=== PATIENT | female | born 1990 | race Hispanic/Latino ===

== ENCOUNTER 2017-11-01 03:26 | Inpatient (IN) | payer MEDICAID, OTHER, SELFPAY ==
[2017-11-01 04:05] VITALS: BMI 31.0
[2017-11-01] MEDS ORDERED: Butorphanol Tartrate 1 MG/ML VIAL SLOW IVP PRN (05:13)
[2017-11-01] MEDS ORDERED: Ondansetron HCl/PF 4 MG/2 ML Vial IVP PRN ×5 (05:13→19:43)
[2017-11-01] MEDS ORDERED: Acetaminophen 500 MG TAB PO PRN (05:13)
[2017-11-01] MEDS ORDERED: Promethazine HCl 25 MG/ML VIAL IM PRN ×3 (05:13→18:31)
[2017-11-01] MEDS ORDERED: NS w/ Oxytocin 10 units 500 ML IV SCH (05:15)
[2017-11-01] MEDS ORDERED: Ibuprofen 800 MG TAB PO PRN (05:15)
[2017-11-01] MEDS ORDERED: Lidocaine 1% (PF) 30 ML VIAL SC PRN (05:15)
[2017-11-01] MEDS ORDERED: NS / Oxytocin 40 units/1000ml 1,000 ML IV SCH ×2 (05:15→19:45)
[2017-11-01] MEDS: Lactated Ringer's 1,000 ML IV SCH ×5 (05:17→23:22)
[2017-11-01 05:41] LABS: Hemoglobin 14.7 g/dL (12.0-16.0); Mean Corpuscular HGB CONC 34.8 g/dL (32.0-36.0); Mean Corpuscular Volume 91.9 fL (78.0-98.0); Mean Platelet Volume 6.6 fL (7.4-10.4); Platelet Count 171 thou/uL (130-400); RBC Distribution Width 12.2 % (11.5-14.5); Red Blood Cell (RBC) Count 4.61 mill/uL (4.20-5.40); White Blood Cell (WBC) Count 8.7 thou/uL (4.8-10.8)
[2017-11-01] MEDS: NS w/ Oxytocin 10 units 500 ML IV SCH (05:50)
[2017-11-01 06:14] LABS: Syphilis Antibody Nonreactive (Nonreactive); Syphilis Antibody Index 0.04 S/CO (<1.00 Non-Reactive)
[2017-11-01 06:15] LABS: HBSAg Index 0.22 S/CO (0-0.99); Hep B Surf Ag Non-Reactive S/CO (NonReactive)
[2017-11-01] MEDS ORDERED: Lactated Ringer's 500 ML IV PRN (07:52)
[2017-11-01] MEDS ORDERED: Naloxone HCl 0.4 mg/ml Vial IVP PRN ×4 (07:52→18:31)
[2017-11-01] MEDS: Bupivacaine 0.5% 20 ML, fentaNYL Citrate/PF 400 MCG in Sodium Chloride 0.9% 72 ML EPIDURAL SCH ×2 (07:52→15:14)
[2017-11-01] MEDS ORDERED: Eucerin (Mineral Oil/Petrolatum,White) 30 gm Jar TOP PRN ×2 (07:52→18:31)
[2017-11-01] MEDS ORDERED: diphenhydrAMINE 50 MG/ML VIAL IVP PRN ×2 (07:52→18:31)
[2017-11-01] MEDS ORDERED: ePHEDrine/0.9% NaCl/PF SYRINGE 50 mg/10 ml SLOW IVP PRN (07:52)
[2017-11-01] MEDS ORDERED: Acetaminophen 325 MG TAB PO PRN (07:52)
[2017-11-01] MEDS ORDERED: Communication Order-Pharmacy FS SCH ×2 (08:00→18:45)
[2017-11-01] MEDS ORDERED: fentaNYL Citrate/PF 400 MCG, Bupivacaine 0.5% 20 ML in Sodium Chloride 0.9% 72 ML EPIDURAL SCH (08:00)
[2017-11-01] MEDS ORDERED: Bupivacaine/Epinephrine 0.25% 30 ML VIAL ONE (14:00)
[2017-11-01] MEDS ORDERED: Lidocaine 2% MPF 10 ML AMP (For Epidural Use) ONE ×2 (14:00→14:50)
[2017-11-01] MEDS ORDERED: PHENYLEPHRINE-NS 100 MCG/ML 10 ML SYRINGE ONE ×2 (14:50→18:55)
[2017-11-01] MEDS ORDERED: ePHEDrine/0.9% NaCl/PF SYRINGE 50 mg/10 ml ONE ×2 (14:50→18:39)
[2017-11-01] MEDS ORDERED: Ondansetron HCl/PF 4 MG/2 ML Vial ONE ×2 (14:50→18:12)
[2017-11-01] MEDS ORDERED: Bicitra 30 ML UDCUP ONE (17:42)
[2017-11-01] MEDS ORDERED: CEFAZOLIN/Water 2 GM/20 ML SYRINGE ONE (17:42)
[2017-11-01] MEDS ORDERED: Misoprostol 200 MCG TAB ONE (18:02)
[2017-11-01] MEDS ORDERED: Misoprostol 100 MCG TAB ONE (18:03)
[2017-11-01] MEDS ORDERED: Oxytocin 10 UNITS/ML VIAL ONE ×2 (18:12→19:02)
[2017-11-01] MEDS ORDERED: Morphine PF 1 MG/ML SYR ONE (18:12)
[2017-11-01] MEDS ORDERED: Bupivacaine/Epinephrine 0.5% 10 ML VIAL ONE (18:15)
[2017-11-01] MEDS ORDERED: Carboprost 250 MCG/ML AMP ONE ×2 (18:30→19:07)
[2017-11-01] MEDS ORDERED: Methylergonovine 0.2 MG/ML VIAL ONE (18:30)
[2017-11-01] MEDS ORDERED: Naloxone HCl 0.4 mg/ml Vial IV PRN (18:31)
[2017-11-01] MEDS ORDERED: Promethazine HCl 25 MG SUPP PR PRN (18:31)
[2017-11-01] MEDS ORDERED: HYDROmorphone 2 MG/ML VIAL SLOW IVP PRN (18:31)
[2017-11-01] MEDS ORDERED: Meperidine HCl/PF 25 MG/ML VIAL SLOW IVP PRN (18:31)
[2017-11-01] MEDS ORDERED: Ketorolac Tromethamine 30 MG/ML VIAL IVP PRN (18:31)
[2017-11-01] MEDS ORDERED: Ketorolac Tromethamine 30 MG/ML VIAL IVP SCH (18:45)
[2017-11-01] MEDS ORDERED: Promethazine HCl 25 MG/ML VIAL ONE (19:20)
[2017-11-01] MEDS ORDERED: Bisacodyl 10 MG SUPP PR PRN (19:43)
[2017-11-01] MEDS ORDERED: diphenhydrAMINE 25 MG CAP PO PRN (19:43)
[2017-11-01] MEDS ORDERED: Simethicone Chewable 80 MG TAB PO PRN (19:43)
[2017-11-01] MEDS ORDERED: HYDROcodone/Acetaminophen 5/325 mg Tablet PO PRN (19:43)
[2017-11-01] MEDS ORDERED: Meperidine HCl/PF 25 MG/ML VIAL IM PRN (19:43)
[2017-11-01] MEDS ORDERED: Lanolin Ointment 7 GM TUBE TOP PRN (19:43)
[2017-11-01] MEDS ORDERED: Methylergonovine 0.2 MG/ML VIAL IM SCH (19:45)
[2017-11-01] MEDS ORDERED: Carboprost 250 MCG/ML AMP IM SCH (19:45)
[2017-11-01] MEDS: metroNIDAZOLE 500 MG in Premix Bag 1 BAG IVPB SCH (20:21)
[2017-11-01] MEDS: Misoprostol 200 MCG TAB PO SCH (21:51)
[2017-11-01] MEDS ORDERED: Ibuprofen 800 MG TAB PO SCH (22:00)
[2017-11-02] MEDS ORDERED: CEFAZOLIN 2 GM in Sodium Chloride 0.9% 100 ML IVPB SCH (00:01)
[2017-11-02] MEDS: CEFAZOLIN/Water 2 GM/20 ML SYRINGE SLOW IVP SCH ×3 (00:25→16:22)
[2017-11-02] MEDS: Docusate Calcium (SURFAK) 240 MG CAP PO SCH ×3 (02:24→21:48)
[2017-11-02] MEDS: Ferrous Sulfate 325 MG TAB PO SCH ×3 (02:24→21:48)
[2017-11-02] MEDS: Misoprostol 200 MCG TAB PO SCH (03:23)
[2017-11-02] MEDS: Lactated Ringer's 1,000 ML IV SCH (04:37)
[2017-11-02] MEDS: metroNIDAZOLE 500 MG in Premix Bag 1 BAG IVPB SCH ×3 (04:37→20:54)
[2017-11-02 05:54] LABS: Hemoglobin 12.2 g/dL (12.0-16.0); Mean Corpuscular HGB CONC 35.6 g/dL (32.0-36.0); Mean Corpuscular Hemoglobin 32.7 pg (27.0-31.0); Mean Corpuscular Volume 91.9 fL (78.0-98.0); Mean Platelet Volume 6.5 fL (7.4-10.4); Platelet Count 131 thou/uL (130-400); RBC Distribution Width 12.5 % (11.5-14.5); Red Blood Cell (RBC) Count 3.73 mill/uL (4.20-5.40); White Blood Cell (WBC) Count 15.1 thou/uL (4.8-10.8)
[2017-11-02] MEDS ORDERED: Furosemide 40 MG/4 ML VIAL SLOW IVP SCH ×2 (07:45→12:15)
[2017-11-02] MEDS: NS w/ Oxytocin 10 units 500 ML IV SCH (08:20)
[2017-11-02] MEDS: Prenatal Vitamin 1 TAB PO SCH (11:31)
[2017-11-02] MEDS ORDERED: Sodium Chloride 0.9% 20 ML ONE (12:15)
[2017-11-02] MEDS ORDERED: Sodium Chloride 0.9% 10 ML ONE (16:12)
[2017-11-02] MEDS: Ibuprofen 800 MG TAB PO SCH (21:48)
[2017-11-03] MEDS: CEFAZOLIN/Water 2 GM/20 ML SYRINGE SLOW IVP SCH ×3 (00:57→18:02)
[2017-11-03] MEDS: metroNIDAZOLE 500 MG in Premix Bag 1 BAG IVPB SCH ×3 (04:03→20:01)
[2017-11-03] MEDS: Ibuprofen 800 MG TAB PO SCH ×3 (06:18→22:15)
[2017-11-03] MEDS: Ferrous Sulfate 325 MG TAB PO SCH ×2 (08:32→23:19)
[2017-11-03] MEDS: Prenatal Vitamin 1 TAB PO SCH (09:25)
[2017-11-03] MEDS: Docusate Calcium (SURFAK) 240 MG CAP PO SCH ×2 (09:25→22:15)
[2017-11-03] MEDS: HYDROcodone/Acetaminophen 5/325 mg Tablet PO PRN (22:15)
[2017-11-04] MEDS: CEFAZOLIN/Water 2 GM/20 ML SYRINGE SLOW IVP SCH ×2 (00:23→08:06)
[2017-11-04] MEDS: metroNIDAZOLE 500 MG in Premix Bag 1 BAG IVPB SCH (04:02)
[2017-11-04] MEDS: Ibuprofen 800 MG TAB PO SCH (05:11)
[2017-11-04] MEDS: Prenatal Vitamin 1 TAB PO SCH (08:07)
[2017-11-04] MEDS: Docusate Calcium (SURFAK) 240 MG CAP PO SCH (08:07)
[2017-11-04] MEDS: Ferrous Sulfate 325 MG TAB PO SCH (08:08)
[2017-11-04 08:41] VITALS: BP 103/65; TEMP 97.6
[2017-11-04] MEDS: HYDROcodone/Acetaminophen 5/325 mg Tablet PO PRN (12:15)
--- NOTE | 2017-11-05 12:33 | OP ---
DATE OF PROCEDURE: 11/01/2017 PREOPERATIVE DIAGNOSIS: Arrest of dilation. POSTOPERATIVE DIAGNOSES: 1. Arrest of dilation. 2. Atonic hemorrhage. PROCEDURE PERFORMED: Primary low cervical transverse section. SURGEON: Waqar Moura M.D. ANESTHESIA: Epidural. INDICATIONS: This is a 27-year-old female who had arrest of dilation at 8-9 cm for 3 hours with no cervical change despite adequate mVU's requiring only low doses of oxytocin to achieve. PROCEDURE IN DETAIL: After informed consent was obtained, the patient was taken to the operating room where after her anesthesia was re-bolused she was prepped and draped in the usual sterile fashion. A Pfannenstiel incision was created with a #10 scalpel and carried down to the fascia. The fascia was nicked in the midline. The fascial incision was extended transversely with Guerrero scissors. The superior fascial segment was grasped with Kochers and elevated and the underlying rectus muscle dissected free, first bluntly and then sharply. This was repeated with the inferior fascial segment. The rectus muscles were divided in the midline with blunt dissection. Peritoneum was entered bluntly. The bladder blade was inserted. The uterus was entered in a low transverse fashion with a clean #10 scalpel blade. Hysterotomy was extended superolaterally with blunt dissection. Clear amniotic fluid was encountered. The vertex delivered onto the operative field followed by the remainder of the . She was delivered atraumatically without difficulty. The oropharynx and nares were bulb suctioned. Cord was clamped x2 and cut and a vigorous infant handed to the staff in attendance. Placenta was manually extracted. The uterus exteriorized and noted to be extremely atonic. Methergine, Hemabate and Cytotec were given in rapid succession. The uterus was repaired with a running locking suture of 0 Vicryl with a series of interrupted [id number] sutures of 0 Vicryl on the incision line for hemostasis which was observed. Uterine tone improved after second Hemabate and no further measures were required; however, it was felt that a significant blood loss had occurred prior to tone returning to the uterus prior to complete closure. Two units of PRBCs were typed and crossed intraoperatively and unit #1 was given intraoperatively. The abdomen was copiously irrigated with saline. Seprafilm was applied to the repaired uterine incision and anterior uterine fundus. The uterus was returned to the abdomen and hemostasis was again observed. No maternal tachycardia or hypotension was noted during the surgery. The peritoneum was repaired with a running suture of 3-0 Vicryl. The fascia was repaired with a running suture of 0 PDS. Three interrupted sutures of 0 Vicryl were placed subdermally to reapproximate the skin which was closed with skin yessenia. Sponge and instrument counts were correct x4. She was taken to recovery in stable condition. The to the nursery also in stable condition. FINDINGS: Viable female , Apgars 8 and 9 at 1 and 5 minutes, respectively. SPECIMENS: None. ESTIMATED BLOOD LOSS: 2100 COMPLICATIONS: Atonic hemorrhage. TOTAL FLUIDS: 3 liters, 2 units PRBC, 1 unit of FFP. MTDD
== END 2017-11-04 14:40 | disposition home or self-care (01) | DRG 765 ==
LOC: L&D/OP 03:26 → L&D 04:48 → 3SW 11-02 10:49
PROVIDERS: ADMIT Family Medicine; ATTEND Family Medicine
PROC: 10D00Z1 Extraction of Products of Conception, Low, Open Approach (ICD-10-PCS; principal; 2017-11-01)
PROC: 30233N1 Transfusion of Nonautologous Red Blood Cells into Peripheral Vein, Percutaneous Approach (ICD-10-PCS; 2017-11-01)
DX: O62.1 Secondary uterine inertia (principal); O72.1 Other immediate postpartum hemorrhage; O76 Abnormality in fetal heart rate and rhythm complicating labor and delivery; Z3A.40 40 weeks gestation of pregnancy; Z37.0 Single live birth
CPT/HCPCS: 36415; 36430; 51702; 85027; 86780; 86850; 86900; 86901; 87340; 99285; A4216; J1940; J2001; J2210; J2274; J2405; J2550; J2590; J3010; J3490; J7050; P9016; P9059

== ENCOUNTER 2018-11-06 06:05 | Emergency (ER) | payer OTHER ==
--- NOTE | 2018-11-06 08:08 | ULT ---
GALLBLADDER ULTRASOUND: INDICATION: Nausea, vomiting, patient. FINDINGS: There is increased hepatic echogenicity. Increased echogenicity with shadowing is also present withi n the gallbladder lumen indicative of cholelithiasis. Troncoso's sign is reported as negative by sonog rapher. The common duct is normal at 3 mm. The imaged right kidney does not reveal evidence of hydr onephrosis. IMPRESSION: Increased echogenicity and shadowing from the region of the gallbladder indicating cholelithiasis. T his does obscure visualization of the gallbladder, however, limiting detail. Recommend clinical stephan elation. POS: EMMY
--- NOTE | 2018-11-06 09:20 | ULT ---
OBSTETRIC SONOGRAM TRANSABDOMINAL IMAGING: HISTORY: Early . Pelvic pain. FINDINGS: Urinary bladder is unremarkable. Uterus is enlarged, measuring up to 14.5 cm. Within the right side of the uterus, endometrium is thickened up to 4.2 cm. High within the left side of the uterus is a gestational sac containing a small pole that correlates with 7 weeks 1 day gestational size. H eart motion at 113 b.p.m. Small yolk sac. No free fluid within the pelvis. Right ovary measures up to 2.6 cm with a normal appearance. Good color and spectral Doppler flow. L eft ovary measures up to 3.3 cm. Small corpus luteum. Good color and spectral Doppler flow. IMPRESSION: 1. Early intrauterine gestation, 7 weeks 1 day size. High within the left side of the uterus, favor ed to be within a left cornua. Certainly not within the fallopian tube. 2. Reported beta HCG level to 64,000, somewhat high for a this size. Please correlate wit h serial HCG levels. Findings were called to Dr. Jean in the emergency department at 0844 hours. CODE CR POS: TALA
--- NOTE | 2018-11-07 04:36 | CON ---
DATE OF CONSULTATION: 11/06/2018 CHIEF COMPLAINT: Concerning ultrasound findings. HISTORY OF PRESENT ILLNESS: The patient is a 28-year-old female, presenting to the emergency room for epigastric pain in her evaluation. The patient was noted to be with a quant of 64,000. Subsequent ultrasound demonstrated a fetus implanted high in the uterus with possible cornual ectopic per ultrasound report. [facility] was consulted for evaluation. Upon reviewing the ultrasound, the uterus appears to be arcuate in shape. With this just at the very fundal portion of the left side of this arcuate-shaped uterus, present in the transverse view of the gestational sac is endometrium in the opposite side. On careful inspection, there appears to be approximately 1 cm or more of myometrium surrounding all sides of this gestational sac except for a very small portion that appears to be about 6 to 7 mm from the base of the endometrium to the exterior surface of the uterus. After reviewing the ultrasound and discussing the findings with the radiologist, I have talked to Ms. Sandi Wilcox about our findings. I do not believe at this time that she has clear evidence of a cornual ectopic. However, with the location of the implantation, this is certainly a possibility that time can make more clear. I have talked to the patient about following with [facility] in the next week or 2 for re-evaluation and ultrasound findings to see how this is developing. I have also stressed the importance of followup with this patient given the possibility of a cornual ectopic and I stressed the potential complications that a cornual ectopic has. The patient has expressed understanding. I have also discussed the case with Dr. Gonzalez, one of the physicians at [facility], who has reported that they will be happy to see her in the followup visit from the ER. At time of the evaluation, the patient was without any symptoms as her epigastric pain had resolved and had no concerning obstetric complaints. PAST MEDICAL HISTORY: Negative. PAST SURGICAL HISTORY: One prior . ALLERGIES: NO KNOWN DRUG ALLERGIES. MEDICATIONS: None. PHYSICAL EXAMINATION: VITAL SIGNS: Blood pressure 109/76, pulse 74, respiratory rate 16, temperature 98.2, pain 0/10, and saturating 99% on room air. GENERAL: She appears to be in no acute distress. She is alert, oriented, cooperative, and pleasant to interact with. HEAD: Normocephalic and atraumatic. LUNGS: Clear to auscultation bilaterally. HEART: Regular rate and rhythm. ABDOMEN: Gravid and soft. EXTREMITIES: Nontender. Nonedematous. : exam has been deferred. DIAGNOSTIC DATA: Ultrasound findings, described in the HPI. ASSESSMENT/PLAN: As stated, the patient is a 28-year-old female with an intrauterine measuring approximately 6 weeks gestation with interpretation by Radiology favoring cornual ectopic. On personal evaluation of the imaging and reviewing with Radiology, I believe that this is a possibility, but less likely. The patient is scheduled to follow up with [facility] [place] for repeat ultrasound and further evaluation. Again, complications of the cornual ectopic have been discussed in detail with the patient and I stressed the importance of followup. Job ID: [id number]
== END 2018-11-06 11:22 | disposition home or self-care (01) ==
LOC: ERS 06:05
DX: O99.89 Other specified diseases and conditions complicating pregnancy, childbirth and the puerperium (principal); R10.13 Epigastric pain; R74.8 Abnormal levels of other serum enzymes; Z3A.01 Less than 8 weeks gestation of pregnancy
CPT/HCPCS: 76705; 76856; 84702; 93976

== ENCOUNTER 2019-03-11 13:26 | Outpatient (CLI) | payer OTHER ==
--- NOTE | 2019-03-11 14:45 | ULT ---
OB ULTRASOUND: HISTORY: anatomy. FINDINGS: There is a single live intrauterine gestation with measurements corresponding to an estimated gestati onal age of 24 weeks 6 days and ZACH at 06/25/2019. The estimated weight measures 678 gm or 1 po und 8 ounces (14% by Hadlock criteria). measurements are as follows: BPD 3.67 cm, 25 weeks 6 days HC 23.50 cm, 25 weeks 4 days AC 20.05 cm, 24 weeks 5 days FL 4.07 cm, 23 weeks 2 days heart rate measures 130 b.p.m. Placenta is anteriorly located without evidence of placenta pre via. TROY measures 16.9 cm. Cervical length measures 8 cm. A 3-vessel cord, cord insertion, kidneys, bladder, stomach, 4-chamber heart, lateral ventricles , cerebellum, spine, lips/nose, upper and lower extremities are visualized. No definite abnorm alities are seen. IMPRESSION: Single live intrauterine of 24 weeks 6 days estimated gestational age and estimated date of delivery at 06/25/2019. POS: TALA
== END 2019-03-11 13:27 | disposition home or self-care (01) ==
LOC: BICULT 13:26
PROVIDERS: ATTEND Family Medicine
DX: O09.92 Supervision of high risk pregnancy, unspecified, second trimester (principal); Z3A.24 24 weeks gestation of pregnancy
CPT/HCPCS: 76805

== ENCOUNTER 2019-06-15 14:31 | Inpatient (IN) | payer MEDICAID, OTHER, SELFPAY ==
[2019-06-15 15:24] VITALS: BMI 28.3
[2019-06-15] MEDS ORDERED: hydrALAZINE 20 MG/ML VIAL SLOW IVP PRN ×2 (15:24→19:54)
[2019-06-15] MEDS ORDERED: Ondansetron PF 4 MG/2 ML Vial IVP PRN ×3 (15:24→19:54)
[2019-06-15] MEDS ORDERED: Promethazine HCl 25 MG/ML VIAL IM PRN ×3 (15:24→19:54)
[2019-06-15] MEDS ORDERED: Ondansetron HCl/PF 4 MG/2 ML Vial IVP PRN (15:34)
[2019-06-15] MEDS ORDERED: Naloxone HCl 0.4 mg/ml Vial IVP PRN ×2 (15:34)
[2019-06-15] MEDS ORDERED: HYDROmorphone 2 MG/ML VIAL SLOW IVP PRN (15:34)
[2019-06-15] MEDS ORDERED: Ketorolac Tromethamine 30 MG/ML VIAL IVP PRN (15:34)
[2019-06-15] MEDS ORDERED: Naloxone HCl 0.4 mg/ml Vial IV PRN (15:34)
[2019-06-15] MEDS ORDERED: L&D-Morphine 4 MG/ML VIAL SLOW IVP PRN (15:34)
[2019-06-15] MEDS ORDERED: diphenhydrAMINE 50 MG/ML VIAL IVP PRN (15:34)
[2019-06-15] MEDS ORDERED: Promethazine HCl 25 MG SUPP PR PRN (15:34)
[2019-06-15] MEDS ORDERED: Meperidine HCl/PF 25 MG/ML VIAL SLOW IVP PRN (15:34)
[2019-06-15] MEDS ORDERED: Ketorolac Tromethamine 30 MG/ML VIAL IVP SCH (15:45)
[2019-06-15] MEDS ORDERED: Communication Order-Pharmacy FS SCH (15:45)
[2019-06-15 15:46] LABS: Mean Corpuscular HGB CONC 35.9 g/dL (32.0-36.0); Mean Corpuscular Hemoglobin 33.5 pg (27.0-31.0); Mean Corpuscular Volume 93.1 fL (78.0-98.0); Mean Platelet Volume 7.5 fL (7.4-10.4); Platelet Count 162 thou/uL (130-400); RBC Distribution Width 12.2 % (11.5-14.5); Red Blood Cell (RBC) Count 4.19 mill/uL (4.20-5.40); White Blood Cell (WBC) Count 8.7 thou/uL (4.8-10.8)
[2019-06-15] MEDS: Lactated Ringer's 1,000 ML IV SCH ×2 (16:00→16:25)
[2019-06-15] MEDS ORDERED: Bicitra 30 ML UDCUP PO SCH (16:00)
[2019-06-15] MEDS ORDERED: CEFAZOLIN 2 GM in Premix Bag 1 BAG IVPB SCH (16:00)
[2019-06-15] MEDS ORDERED: MORPHINE 5 MG/10 ML PF VIAL ONE (16:19)
[2019-06-15] MEDS ORDERED: Oxytocin 10 UNITS/ML VIAL ONE ×3 (16:20→17:12)
[2019-06-15] MEDS ORDERED: Ondansetron PF 4 MG/2 ML Vial ONE (16:20)
[2019-06-15] MEDS ORDERED: Dexamethasone 4 mg/ml Vial ONE (16:20)
[2019-06-15] MEDS ORDERED: Ketorolac Tromethamine 30 MG/ML VIAL ONE (16:20)
[2019-06-15 16:27] LABS: HBSAg Index 0.19 S/CO (0-0.99); Hep B Surf Ag Non-Reactive S/CO (NonReactive); Syphilis Antibody Nonreactive (Nonreactive); Syphilis Antibody Index 0.07 S/CO (<1.00 Non-Reactive)
[2019-06-15] MEDS ORDERED: Meperidine HCl/PF 25 MG/ML VIAL ONE (19:45)
[2019-06-15] MEDS ORDERED: Adacel (T-DAP) 0.5 ML SYRINGE IM ONE (19:54)
[2019-06-15] MEDS ORDERED: Lanolin Ointment 7 GM TUBE TOP PRN (19:54)
[2019-06-15] MEDS ORDERED: Bisacodyl 10 MG SUPP PR PRN (19:54)
[2019-06-15] MEDS ORDERED: diphenhydrAMINE 25 MG CAP PO PRN (19:54)
[2019-06-15] MEDS: Ketorolac Tromethamine 30 MG/ML VIAL IVP SCH (21:15)
[2019-06-15] MEDS: Ferrous Sulfate 325 MG TAB PO SCH (21:16)
[2019-06-15] MEDS: Docusate Calcium (SURFAK) 240 MG CAP PO SCH (21:16)
[2019-06-16] MEDS: Ketorolac Tromethamine 30 MG/ML VIAL IVP SCH ×5 (00:02→19:43)
[2019-06-16] MEDS ORDERED: HYDROcodone/Acetaminophen 5/325 mg Tablet PO PRN (03:45)
[2019-06-16 06:32] LABS: Hemoglobin 10.9 g/dL (12.0-16.0); Mean Corpuscular HGB CONC 36.1 g/dL (32.0-36.0); Mean Corpuscular Hemoglobin 33.5 pg (27.0-31.0); Mean Corpuscular Volume 92.9 fL (78.0-98.0); Mean Platelet Volume 6.8 fL (7.4-10.4); Platelet Count 145 thou/uL (130-400); RBC Distribution Width 11.8 % (11.5-14.5); Red Blood Cell (RBC) Count 3.27 mill/uL (4.20-5.40); White Blood Cell (WBC) Count 12.9 thou/uL (4.8-10.8)
[2019-06-16] MEDS: Prenatal Vitamin 1 TAB PO SCH (09:58)
[2019-06-16] MEDS: HYDROcodone/Acetaminophen 5/325 mg Tablet PO PRN ×2 (09:58→20:07)
[2019-06-16] MEDS: Ferrous Sulfate 325 MG TAB PO SCH ×2 (09:59→20:57)
[2019-06-16] MEDS: Docusate Calcium (SURFAK) 240 MG CAP PO SCH ×2 (09:59→21:28)
--- NOTE | 2019-06-16 13:19 | PDOC.OPDEL ---
OB Operative/Delivery Note Delivery Dr/Surgeon: Lui Moura Pre-Delivery Diagnosis: scheduled section Procedure/Post Delivery Dx: repeat low transverse CS Anesthesia: spinal - Additional Findings/Plan Compilations/Other Findings: Procedure Note Date of Procedure: 06/15/19 Resident Surgeon: Gretchen Poe MD, PGY2 Attending Surgeon: Dr. Moura Procedure: Repeat low transverse caesarean section Preoperative Diagnosis: 1)Term intrauterine 2)Previous x1 Postoperative Diagnosis: 1)same as above 2)rLTCS x2 Indications: The patient is a 29 year old female at 39.0 weeks gestation who presents for a repeat scheduled . Procedure in Detail: After risks, benefits, and alternatives were explained to the patient, she gave informed consent. Pre-operative antibiotics included Cefazolin 2 gram IV. The patient was taken to the operating room and spinal anesthesia was initiated. She was placed in the supine position with a left tilt and prepped and draped in usual sterile fashion. A Pfannenstiel incision was made with a scalpel and carried down to the level of the fascia which was sharply nicked. The fascial cut was extended bilaterally with Moroni sissors. The inferior and superior edges of the cut fascial edges were elevated with Lou clamps and the underlying rectus muscles were sharply and bluntly dissected free. The recti were divided digitally and retracted manually. The peritoneum was entered blunty with sharp dissection of adhesions and retracted manually. Bladder blade was placed. A low transverse score was made with the scalpel and the uterus was entered in the midline with the scalpel. Clear fluid was seen. The hysterotomy was extended manually. The was noted to be vertex and was easily delivered by fundal pressure. Mouth and nares were bulb suctioned. Cord clamped and cut and grossly normal female infant was handed to waiting nurse. Cord blood was obtained. Placenta was manually extracted, found to be intact with 3 vessel cord and discarded. The uterus was externalized and the endometrium was curetted with a dry lap. The bladder blade was replaced and the uterus was closed with a running locking 0-monocryl. Following this hemostasis was noted. The abdomen was irrigated with saline and suctioned free of clots. Posterior uterus had some minimal bleeding, Charmaine was applied. The uterus was internalized and the hysterotomy was again noted to be hemostatic. The peritoneum was approximated with suture. Fascia was closed with a running non- locking 0-PDS suture. The subcutaneous tissue was irrigated and there were no bleeders and approximated with interrupted chromic sutures. The skin was approximated with yessenia and a pressure dressing was placed. All counts were correct. The patient tolerated the procedure well and was taken to the recovery room in stable condition. Estimated Blood Loss: 935cc Complications: None Specimens: Cord blood sent to lab for blood type Findings: Grossly normal female with Apgars of 8 and 9. Grossly normal placenta with 3 vessel cord discarded. Drains: Royal to gravity draining clear urine Post delivery plan: routine recovery
[2019-06-16] MEDS: Ibuprofen 800 MG TAB PO SCH ×2 (14:30→21:28)
[2019-06-16] MEDS: Simethicone Chewable 80 MG TAB PO PRN (20:06)
[2019-06-17] MEDS: Ketorolac Tromethamine 30 MG/ML VIAL IVP SCH ×4 (05:34→20:34)
[2019-06-17] MEDS: Ibuprofen 800 MG TAB PO SCH ×3 (05:39→21:24)
[2019-06-17] MEDS: Docusate Calcium (SURFAK) 240 MG CAP PO SCH ×2 (08:36→21:24)
[2019-06-17] MEDS: Prenatal Vitamin 1 TAB PO SCH (08:36)
[2019-06-17] MEDS: HYDROcodone/Acetaminophen 5/325 mg Tablet PO PRN ×3 (08:37→19:12)
[2019-06-17] MEDS: Ferrous Sulfate 325 MG TAB PO SCH ×2 (08:40→20:32)
[2019-06-18] MEDS: Ibuprofen 800 MG TAB PO SCH ×2 (05:49→13:42)
[2019-06-18] MEDS: Simethicone Chewable 80 MG TAB PO PRN (05:49)
[2019-06-18] MEDS: HYDROcodone/Acetaminophen 5/325 mg Tablet PO PRN (05:49)
[2019-06-18] MEDS: Ketorolac Tromethamine 30 MG/ML VIAL IVP SCH (06:54)
[2019-06-18 07:59] VITALS: BP 115/73; TEMP 98.8
[2019-06-18] MEDS: Docusate Calcium (SURFAK) 240 MG CAP PO SCH (08:05)
[2019-06-18] MEDS: Prenatal Vitamin 1 TAB PO SCH (08:05)
[2019-06-18] MEDS: Ferrous Sulfate 325 MG TAB PO SCH (08:08)
--- NOTE | 2019-06-23 12:43 | PQF ---
TYLER GONZALEZ ROLAND R MD [id number] [facility] [id number] CLINICAL DOCUMENTATION CLARIFICATION FORM: POST DISCHARGE Addendum to original discharge summary date: ____ Late entry note date: __ DATE: 06/23/2019 ATTN:WAQAR MOURA MD Please exercise your independent, professional judgment in responding to the clarification form. Clinical indicators are provided on the bottom of this form for your review Please check appropriate box(s): [ X ] Acute blood loss anemia [ ] Post-op anemia related to acute blood loss [ ] Anemia NOS [ ] Other diagnosis [ ] Unable to determine In addition, please specify: Present on Admission (POA): [ ] Yes [X ] No [ ] Unable to determine For continuity of documentation, please document condition throughout progress notes and discharge summary. Thank You. CLINICAL INDICATORS - SIGNS / SYMPTOMS / LABS HGB-14.0 to 10.0, HCT 39.0 to 30.3-Documented in Laboratory EBL -935cc-Documented in OB operative & delivery note on 06/14 by Waqar Moura MD Repeat low transverse section-Documented in OB operative & delivery note on 06/14 by Waqar Moura MD RISK FACTORS Repeat low transverse section-Documented in OB oprative & delivery note on 06/14 by Waqar Moura MD TREATMENTS: Ferrous sulfate 325 mg PO -Medication snapshot (This form is maintained as a part of the permanent medical record) 2014 [employer]. All Rights Reserved [email or web address]
== END 2019-06-18 16:50 | disposition home or self-care (01) | DRG 787 ==
LOC: L&D 14:31 → 3SE 20:59
PROVIDERS: ADMIT Family Medicine; ATTEND Family Medicine
PROC: 10D00Z1 Extraction of Products of Conception, Low, Open Approach (ICD-10-PCS; principal; 2019-06-15)
PROC: 6A550ZT Pheresis of Cord Blood Stem Cells, Single (ICD-10-PCS; 2019-06-15)
DX: O34.219 Maternal care for unspecified type scar from previous cesarean delivery (principal); D62 Acute posthemorrhagic anemia; Z3A.39 39 weeks gestation of pregnancy; Z37.0 Single live birth; O99.02 Anemia complicating childbirth
CPT/HCPCS: 36415; 51702; 85027; 86780; 86850; 86900; 86901; 87340; J0690; J1100; J1885; J2175; J2274; J2405; J2590